=== PATIENT | female | born 1960 | race Caucasian/White ===

== ENCOUNTER 2018-04-28 19:06 | Emergency (ER) | payer OTHER ==
[2018-04-28 19:14] VITALS: TEMP 98.1
[2018-04-28] MEDS ORDERED: ORPHENADRINE 30 MG/ML 2 ML VIAL IM STA (19:43)
[2018-04-28] MEDS ORDERED: KETOROLAC 30 MG/ML 1 ML VIAL IM STA (19:43)
--- NOTE | 2018-04-28 20:04 | ED ---
Extremity Problem HPI - General Chief complaint: Extremity Problem,Nontraumatic Stated complaint: rt hip pain, rt knee pain Time Seen by Provider: 04/28/18 19:19 Source: patient Mode of arrival: wheelchair Limitations: no limitations - History of Present Illness Initial comments: 57-year-old female patient presents to the emergency department today for evaluation of right hip pain that radiates down her anterior thigh into the knee. Patient states that she has had issues with her back for quite some time. Patient states that over the last 4 days the pain to this area has been worsening. Patient states is making it difficult for her to walk. Patient states that has broken from sleep at night. States that she has been taking aspirin but doesn't seem to be helping. States that she did take a Xanax today which did help somewhat. Patient states that in February she was doing a new kickboxing class which she thinks exacerbated her previous symptoms. She denies any swelling to the leg. She denies any numbness or tingling to the lower extremities. Denies any loss of bowel or bladder control or saddle anesthesia. Denies any fevers or chills. Patient denies any recent rash, shortness breath, chest pain, abdominal pain, nausea, vomiting, diarrhea, constipation, dizziness, weakness, hematuria, dysuria, urinary urgency, urinary frequency, headache, visual changes, or any other complaints. - Related Data Home Medications Medication Instructions Recorded Confirmed Aspirin EC [Ecotrin] 325 mg PO DAILY 04/28/18 04/28/18 Previous Rx's Medication Instructions Recorded Cyclobenzaprine [Flexeril] 10 mg PO TID #15 tab 04/28/18 Naproxen [Naprosyn] 500 mg PO BID #20 tablet 04/28/18 predniSONE 50 mg PO DAILY #5 tablet 04/28/18 Allergies Allergy/AdvReac Type Severity Reaction Status Date / Time tetanus and diphtheria Allergy Swelling Verified 04/28/18 20:36 toxoids Review of Systems ROS Statement: Those systems with pertinent positive or pertinent negative responses have been documented in the HPI. ROS Other: All systems not noted in ROS Statement are negative. Past Medical History Additional Past Medical History / Comment(s): back pain History of Any Multi-Drug Resistant Organisms: None Reported Past Surgical History: No Surgical Hx Reported Past Psychological History: No Psychological Hx Reported Smoking Status: Current every day smoker Past Alcohol Use History: Rare Past Drug Use History: None Reported General Exam Limitations: no limitations General appearance: alert, in no apparent distress, other (This is a well- developed, well-nourished adult female patient in no acute distress. Vital signs upon presentation are temperature 98.1F, pulse 94, respiration 16, blood pressure 142/83, pulse ox 96% on room air.) Eye exam: Present: normal appearance, PERRL, EOMI. Absent: scleral icterus, conjunctival injection, periorbital swelling ENT exam: Present: normal exam, normal oropharynx, mucous membranes moist Respiratory exam: Present: normal lung sounds bilaterally. Absent: respiratory distress, wheezes, rales, rhonchi, stridor Cardiovascular Exam: Present: regular rate, normal rhythm, normal heart sounds. Absent: systolic murmur, diastolic murmur, rubs, gallop, clicks Extremities exam: Present: normal inspection, full ROM, tenderness (Tenderness over the right lateral hip, over the joint.), normal capillary refill, other ( Skin to the right lower trauma is pink, warm, and dry. Cap refills less than 3 seconds. Pedal pulses 2+ and equal bilaterally.). Absent: pedal edema, joint swelling, calf tenderness Neurological exam: Present: alert, oriented X3, CN II-XII intact Psychiatric exam: Present: normal affect, normal mood Skin exam: Present: warm, dry, intact, normal color. Absent: rash Course Vital Signs 04/28/18 19:08 Temperature 98.1 F Pulse Rate 94 Respiratory 16 Rate Blood Pressure 142/83 O2 Sat by Pulse 96 Oximetry Medical Decision Making - Medical Decision Making 57-year-old female patient presents to the emergency department today for evaluation of right hip pain. Patient states the pain starts in the right posterior hip radiates around to the lateral hip joint and down the front of the thigh to the knee. Physical examination does reveal tenderness over the lateral aspect of the hip joint. There is no erythema or swelling noted. The patient has good strength to the lower extremities. Neurovascular status is intact. X-ray of the right hip and pelvis was obtained and showed no acute process. Patient symptoms are consistent with bursitis. We'll treat with anti- inflammatories, steroids, and muscle relaxer. She is instructed to follow-up with her primary care physician for recheck in 1-2 days. Return parameters discussed in detail. She verbalizes understanding and agrees with this plan. - Radiology Data Radiology results: report reviewed, image reviewed Single AP view of the pelvis and 2 views of the right hip are obtained. Report was reviewed in its entirety. Impression by Dr. Ocasio shows no acute fracture dislocation in the pelvis or right hip. Disposition Clinical Impression: Bursitis of right hip Disposition: HOME SELF-CARE Condition: Good Instructions: Hip Bursitis (ED) Additional Instructions: Take medication as directed. Complete steroid prescription and full. Follow- up with your primary care physician for recheck in 1-2 days. Return immediately for any new, worsening, or concerning symptoms. Prescriptions: Cyclobenzaprine [Flexeril] 10 mg PO TID #15 tab Naproxen [Naprosyn] 500 mg PO BID #20 tablet predniSONE 50 mg PO DAILY #5 tablet Is patient prescribed a controlled substance at d/c from ED?: No Referrals: None,Stated [Primary Care Provider] - 1-2 days Time of Disposition: 20:58
--- NOTE | 2018-04-28 20:14 | XR ---
EXAMINATION TYPE: XR Hip RT and AP Pelvis DATE OF EXAM: 04/28/2018 COMPARISON: NONE HISTORY: Right hip pain, injury TECHNIQUE: A single AP view of the pelvis is obtained. Two views of the right hip are obtained. FINDINGS: There is no acute fracture/dislocation evident in the pelvis. The hip and sacroiliac join ts appear symmetric and unremarkable. The overlying soft tissue appears unremarkable. Two views of hip show no acute fracture or dislocation. No focal lytic or sclerotic lesion seen in t he proximal femur. The overlying soft tissue is unremarkable. IMPRESSION: There is no acute fracture or dislocation in the pelvis or right hip.
[2018-04-28 21:48] VITALS: BP 113/84; PULSE 69; RESP 18
== END 2018-04-28 21:28 | disposition home or self-care (01) ==
LOC: EC 19:06
DX: M71.551 Other bursitis, not elsewhere classified, right hip (principal); F17.200 Nicotine dependence, unspecified, uncomplicated; Z88.7 Allergy status to serum and vaccine; Z79.82 Long term (current) use of aspirin; Z87.39 Personal history of other diseases of the musculoskeletal system and connective tissue; Y93.71 Activity, boxing
CPT/HCPCS: 73502; 99283; 96372 ×2; J2360; J1885

== ENCOUNTER → 2018-06-13 | Outpatient (CLI) | payer OTHER ==
--- NOTE | 2018-06-13 14:41 | XR ---
EXAMINATION TYPE: XR Hip Complete RT DATE OF EXAM: 06/13/2018 COMPARISON: NONE HISTORY: Pain TECHNIQUE: 2 views submitted FINDINGS: There is no evidence of erosive change or acute fracture. Sclerotic focus overlying the right femoral head may represent a small bone island. Diffuse osteopenia. Very mild hypertrophic change of the lat eral margin of the acetabulum. Spurring along the greater trochanter noted. IMPRESSION: 1. No acute fracture or erosive change. There is mild hypertrophic change of the acetabulum which can occasionally be seen with femoral acetabular impingement correlate clinically..
--- NOTE | 2018-06-13 14:45 | XR ---
EXAM TYPE: LUMBAR SPINE X RAY SERIES COMPARISON: NONE HISTORY: Pain TECHNIQUE: 4 views are submitted. FINDINGS: Alignment is anatomic. The pedicles are intact. The transverse processes are intact. There is no s pondylolysis or spondylolisthesis. There is multilevel degenerative disc disease with most marked fin dings at L5-S1. Multilevel facet arthropathy and hypertrophic spurring particularly at the thoracolum bar junction. Vascular calcifications are noted. Bilateral SI joint arthropathy greater on the left n oted. IMPRESSION: 1. Multilevel degenerative disc disease and facet arthropathy with most marked findings at L5-S1. Mata ateral foraminal encroachment is suspected. Correlate with MRI.
== END | disposition home or self-care (01) ==
LOC: RADXRYALE 13:10
PROVIDERS: ATTEND Internal Medicine
DX: M51.37 Other intervertebral disc degeneration, lumbosacral region (principal); M46.87 Other specified inflammatory spondylopathies, lumbosacral region; M89.351 Hypertrophy of bone, right femur
CPT/HCPCS: 72110; 73502